=== PATIENT | female | born 1985 | race Caucasian/White ===

== ENCOUNTER 2019-08-04 21:21 | Emergency (ER) | payer BC, OTHER ==
[2019-08-04 21:42] VITALS: BP 147/80
[2019-08-04] MEDS ORDERED: Amoxicillin/Clavulanate TAB* 875 MG PO ONE (22:09)
--- NOTE | 2019-08-04 22:09 | UC ---
Throat Pain/Nasal [place] HPI - HPI Summary HPI Summary: 9 day history of sore throat, nasla discharge, with progressive worsening headache, fatigue, malaise and discharge. Sleeping more. Has cough but no shortness of breath. - History of Current Complaint Chief Complaint: UCGeneralIllness Stated Complaint: SINUS COMPLAINT Time Seen by Provider: 08/04/19 22:00 Hx Obtained From: Patient Hx Last Menstrual Period: 07/16/19 Onset/Duration: Gradual Onset, Lasting Days Pain Intensity: 2 Cough: Nonproductive Associated Signs & Symptoms: Positive: Hoarseness, Sinus Discomfort - Epiglottits Risk Factors Epiglottis Risk Factors: Negative - Allergies/Home Medications Allergies/Adverse Reactions: Allergies Allergy/AdvReac Type Severity Reaction Status Date / Time No Known Allergies Allergy Verified 08/04/19 21:34 PMH/Surg Hx/FS Hx/Imm Hx Previously Healthy: Yes - Surgical History Surgical History: Yes Surgery Procedure, Year, and Place: left ankle X2. Left knee. fused back. right shoulder. right and left elbow. right thumb - Family History Known Family History: Positive: Non-Contributory - Social History Occupation: Employed Full-time Alcohol Use: Occasionally Substance Use Type: None Smoking Status (MU): Never Smoked Tobacco Review of Systems All Other Systems Reviewed And Are Negative: Yes Constitutional: Positive: Fatigue Skin: Positive: Negative Eyes: Positive: Negative ENT: Positive: Sore Throat, Nasal Discharge, Sinus Congestion Respiratory: Positive: Cough. Negative: Shortness Of Breath Cardiovascular: Negative: Palpitations, Chest Pain Gastrointestinal: Positive: Negative Genitourinary: Positive: Negative Motor: Positive: Negative Neurovascular: Positive: Negative Musculoskeletal: Positive: Negative Neurological: Positive: Headache Psychological: Positive: Negative Is Patient Immunocompromised?: No Physical Exam Triage Information Reviewed: Yes Appearance: Ill-Appearing - looks unwell and fatigued. Vital Signs: Initial Vital Signs Temp 98.3 F 08/04/19 21:30 Pulse 73 08/04/19 21:30 Resp 15 08/04/19 21:30 BP 147/80 08/04/19 21:30 Pulse Ox 100 08/04/19 21:30 Eyes: Positive: Conjunctiva Clear ENT: Positive: Pharyngeal erythema, TMs normal. Negative: Tonsillar swelling Dental Exam: Normal Respiratory: Positive: Lungs clear, Normal breath sounds Cardiovascular: Positive: RRR, No Murmur Musculoskeletal Exam: Normal Musculoskeletal: Positive: Strength Intact Neurological Exam: Normal Neurological: Positive: Alert Psychological Exam: Normal Skin Exam: Normal Throat Pain/Nasal Course/Dx - Course Course Of Treatment: Discussed that this is likely viral in origin but she would like antibiotic treatment given the duration of her symptoms and purulent discharge. Advised use of saline spray and flonase to promote sinus drainage. - Differential Dx/Diagnosis Differential Diagnosis/HQI/PQRI: Sinusitis, Tonsillitis, URI Provider Diagnosis: Sinusitis Discharge ED - Sign-Out/Discharge Documenting (check all that apply): Patient Departure All imaging exams completed and their final reports reviewed: No Studies - Discharge Plan Condition: Stable Disposition: HOME Prescriptions: Amoxicillin/Clavulanate TAB* [Augmentin TAB 875*] 875 mg PO BID #18 tab Patient Education Materials: Sinusitis (ED) Referrals: Shalonda Edmonds [Primary Care Provider] - Additional Instructions: Begin use of augmentin for treatment of sinusitis. Ensure that you take the full dose of the prescription. to promote sinus drainage, you might try use of saline nasal spray and flonase spray 2 sprays to both nostrils once daily. - Billing Disposition and Condition Condition: STABLE Disposition: Home
== END 2019-08-04 22:20 | disposition home or self-care (01) ==
LOC: UCCORT 21:21
DX: J32.9 Chronic sinusitis, unspecified (principal); J02.9 Acute pharyngitis, unspecified
CPT/HCPCS: 99202; A9270-GY; G0463